=== PATIENT | male | born 1935 | race Caucasian/White ===

== ENCOUNTER 2017-02-27 13:49 | Emergency (ER) | payer OTHER, BC ==
[2017-02-27] MEDS ORDERED: NS 1,000 ML IV ONE (13:54)
--- NOTE | 2017-02-27 13:58 | EDPHY ---
H & P Time Seen by Provider: 02/27/17 13:50 HPI/ROS: CHIEF COMPLAINT: Presyncope, tachycardia HISTORY OF PRESENT ILLNESS: The patient presents the ED after an episode of presyncope. The patient has a history of paroxysmal atrial fibrillation. He is not anticoagulated. Past medical history is significant for recent dental work on . The patient was going on a walk with his caregiver today when he developed presyncope and lightheadedness. The patient did not fall or sustain trauma. The patient was able to be assisted back to a couch where his heart rate reportedly was found to be in the 140s to 150s. This seemed to resolve fairly spontaneously. The patient continued to have tachycardia in the 90-100 range which prompted caregiver to call paramedics. The patient was placed on a monitor with EMS and was noted to have intermittent bouts of what appeared to be rapid atrial fibrillation. Upon arrival to the emergency department the patient is asymptomatic. He denies chest pain or shortness of breath. The patient has had decreased oral intake since his surgery this week. The patient has not had any fever, cough or congestion. He denies abdominal pain, vomiting or diarrhea. He denies headache, numbness or weakness. REVIEW OF SYSTEMS: A comprehensive 10 point review of systems is otherwise negative aside from elements mentioned in the history of present illness. Source: Patient, Family, EMS - Medical/Surgical History PMH: Past medical history: Atrial fibrillation, dementia - Family History Significant Family History: No pertinent family hx - Social History Smoking Status: Never smoked - Physical Exam Exam: General Appearance: Elderly male, no acute distress Head: Atraumatic Eyes: Pupils equal, round, reactive ENT, Mouth: No hemotympanum, no oral trauma Neck: Nontender, trachea midline Respiratory: No chest wall tender, subcutaneous air, lungs clear bilaterally Cardiovascular: Regular rate and rhythm Abdomen: Abdomen is soft and nontender, pelvis stable Skin: No lacerations, No abrasion Back: No midline T/L/S pain Extremities: Nontender, full range of motion Neurological: Alert and oriented x2 (baseline), 5/5 strength noted all 4 extremities Constitutional: Initial Vital Signs Temperature (C) 36.9 C 02/27/17 13:56 Heart Rate 10 L 02/27/17 13:56 Respiratory Rate 16 02/27/17 13:56 Blood Pressure 119/82 H 02/27/17 13:56 O2 Sat (%) 98 02/27/17 13:56 O2 Delivery Mode Room Air Allergies/Adverse Reactions: Sulfa (Sulfonamide Antibiotics) Allergy (Verified 02/27/17 13:56) Home Medications: Medication Instructions Recorded Furosemide 02/27/17 Lisinopril 02/27/17 Metoprolol Succinate 02/27/17 Pravastatin Sodium 02/27/17 Medical Decision Making - Diagnostics EKG Interpretation: EKG: Complete interpretation has been separately recorded in the [employer] archive. Summary impression: Sinus rhythm, rate 88, inferior Q-waves noted, no prior EKG to compare to. ED Course/Re-evaluation: The patient arrives after an episode of presyncope. The patient has been having intermittent atrial fibrillation. While in the emergency department, it is clear that the patient is exhibiting symptoms of acute confusion. He has been taking Percocet following his recent dental procedure. The patient does have a history of dementia as well. While in the department, the patient was having visual hallucinations feeling that bugs were crawling on his bed. The patient did have an IV established. He received a L of normal saline. The patient the did have some urinary retention. A urinalysis demonstrates no evidence of infection. The patient presents to the ED with tachycardia consistent with intermittent atrial fibrillation now resolved. The patient has had some confusion and urinary retention likely secondary to using Percocet for recent dental work. The patient does have 24 hour home care. They will discontinue the use of Percocet. They are comfortable with the patient returning home. The patient will return to the ED for any inability to urinate, fever, vomiting, increasing confusion or other concerns. Otherwise the patient will follow up with primary care as scheduled. I re-evaluated the patient at 4:30 p.m.. He is feeling much better. Differential Diagnosis: Differential diagnosis considered includes urinary tract infection, dehydration , arrhythmia, metabolic abnormality, medication side effect - Data Points Laboratory Results: Laboratory Results 02/27/17 14:05 02/27/17 14:05 02/27/17 02/27/17 02/27/17 16:24 14:05 14:05 WBC 6.48 10^3/uL 10^3/uL (3.80-9.50) RBC 4.51 10^6/uL 10^6/uL (4.40-6.38) Hgb 13.8 g/dL g/dL (13.7-17.5) Hct 41.3 % % (40.0-51.0) MCV 91.6 fL fL (81.5-99.8) MCH 30.6 pg pg (27.9-34.1) MCHC 33.4 g/dL g/dL (32.4-36.7) RDW 13.6 % % (11.5-15.2) Plt Count 180 10^3/uL 10^3/uL (150-400) MPV 8.8 fL fL (8.7-11.7) Neut % (Auto) 71.1 % % (39.3-74.2) Lymph % (Auto) 17.9 % % (15.0-45.0) [place] % (Auto) 7.7 % % (4.5-13.0) Eos % (Auto) 2.2 % % (0.6-7.6) Baso % (Auto) 0.8 % % (0.3-1.7) Nucleat RBC Rel Count 0.0 % % (0.0-0.2) Absolute Neuts (auto) 4.61 10^3/uL 10^3/uL (1.70-6.50) Absolute Lymphs (auto) 1.16 10^3/uL 10^3/uL (1.00-3.00) Absolute Monos (auto) 0.50 10^3/uL 10^3/uL (0.30-0.80) Absolute Eos (auto) 0.14 10^3/uL 10^3/uL (0.03-0.40) Absolute Basos (auto) 0.05 10^3/uL 10^3/uL (0.02-0.10) Absolute Nucleated RBC 0.00 10^3/uL 10^3/uL (0-0.01) Immature Gran % 0.3 % % (0.0-1.1) Immature Gran # 0.02 10^3/uL 10^3/uL (0.00-0.10) Sodium 136 mEq/L mEq/L (134-144) Potassium 4.9 mEq/L mEq/L (3.5-5.2) Chloride 100 mEq/L mEq/L (97-110) Carbon Dioxide 25 mEq/l mEq/l (22-31) Anion Gap 11 mEq/L mEq/L (8-16) BUN 23 mg/dL mg/dL (7-23) Creatinine 1.3 mg/dL mg/dL (0.7-1.3) Estimated GFR 53 Glucose 108 mg/dL H mg/dL (70-100) Calcium 9.4 mg/dL mg/dL (8.5-10.4) Troponin I < 0.012 ng/mL ng/mL (0-0.034) Urine Color PALE YELLOW Urine Appearance CLEAR Urine pH 8.0 H (5.0-7.5) Ur Specific [place] 1.006 (1.002-1.030) Urine Protein NEGATIVE (NEGATIVE) Urine Ketones NEGATIVE (NEGATIVE) Urine Blood NEGATIVE (NEGATIVE) Urine Nitrate NEGATIVE (NEGATIVE) Urine Bilirubin NEGATIVE (NEGATIVE) Urine Urobilinogen NEGATIVE EU EU (0.2-1.0) Ur Leukocyte Esterase NEGATIVE (NEGATIVE) Urine RBC 1-3 /hpf /hpf (0-3) Urine WBC 1-3 /hpf /hpf (0-3) Ur Epithelial Cells TRACE /lpf /lpf (NONE-1+) Urine Glucose NEGATIVE (NEGATIVE) Medications Given: Discontinued Medications Sodium Chloride (Ns) 1,000 mls @ 0 mls/hr IV EDNOW ONE; Wide Open PRN Reason: Protocol Stop: 02/27/17 13:55 Last Admin: 02/27/17 14:26 Dose: 1,000 mls Departure - Departure Disposition: Home, Routine, Self-Care Clinical Impression: Atrial fibrillation, Medication side effect, Urinary retention Condition: Good Instructions: A-fib (Atrial Fibrillation) (ED), Dehydration (ED) Additional Instructions: 1. Please return to the emergency department fever, vomiting, inability to urinate, persistent tachycardia or other concerns. 2. I recommend discontinuing Percocet as this is likely causing confusion and difficulty with bowel movements and urination. 3. Follow-up with your primary care provider as scheduled. Referrals: KAYLEE SEGURA [Primary Care Provider] - As per Instructions
[2017-02-27 13:59] VITALS: TEMP 98.4
--- NOTE | 2017-02-27 14:05 | CPEKG ---
Heart Rate: 88 RR Interval: 682 P-R Interval: 188 QRSD Interval: 86 QT Interval: 368 QTC Interval: 446 P [place]: 8 QRS [place]: -10 T Wave [place]: 78 EKG Severity - ABNORMAL ECG - EKG Impression: SINUS RHYTHM EKG Impression: PROBABLE INFERIOR INFARCT, AGE INDETERMINATE Electronically Signed By: Víctor Khan 27-Feb-2017 14:06:58
[2017-02-27 14:14] LABS: % IMMATURE GRANULYOCYTES 0.3 % (0.0-1.1); ABSOLUTE IMMATURE GRANULOCYTES 0.02 10^3/uL (0.00-0.10); ADD DIFF? NO; ADD MORPH? NO; ADD SCAN? NO; ATYPICAL LYMPHOCYTE FLAG 0 (0-99); FRAGMENT RBC FLAG 0 (0-99); HEMATOCRIT 41.3 % (40.0-51.0); HEMOGLOBIN 13.8 g/dL (13.7-17.5); LEFT SHIFT FLG 0 (0-99); LIPEMIA HEMOLYSIS FLAG 80 (0-99); MEAN CELL HEMOGLOBIN 30.6 pg (27.9-34.1); MEAN CELL HEMOGLOBIN CONCENTR. 33.4 g/dL (32.4-36.7); MEAN CELL VOLUME 91.6 fL (81.5-99.8); MEAN PLATELET VOLUME 8.8 fL (8.7-11.7); PLATELET CLUMPS FLAG 0 (0-99); PLATELET COUNT 180 10^3/uL (150-400); RED BLOOD CELL COUNT 4.51 10^6/uL (4.40-6.38); RED CELL DISTRIBUTION WIDTH 13.6 % (11.5-15.2)
[2017-02-27 14:28] LABS: ANION GAP 11 mEq/L (8-16); CALCIUM 9.4 mg/dL (8.5-10.4); CARBON DIOXIDE 25 mEq/l (22-31); CHLORIDE 100 mEq/L (97-110); CREATININE 1.3 mg/dL (0.7-1.3); GLOMERULAR FILTRATION RATE 53; GLUCOSE 108 mg/dL (70-100); POTASSIUM 4.9 mEq/L (3.5-5.2); SODIUM 136 mEq/L (134-144)
[2017-02-27 14:40] LABS: TROPONIN I < 0.012 ng/mL (0-0.034)
[2017-02-27 16:29] LABS: COLOR PALE YELLOW; LEUKOCYTE ESTERASE,URINE NEGATIVE (NEGATIVE); NITRITE,URINE NEGATIVE (NEGATIVE)
[2017-02-27 17:05] VITALS: BP 149/89; PULSE 88; RESP 20; O2SAT 92
== END 2017-02-27 17:22 | disposition home or self-care (01) ==
LOC: EDUNIT#
DX: I48.91 Unspecified atrial fibrillation (principal); R33.9 Retention of urine, unspecified; T88.7XXA Unspecified adverse effect of drug or medicament, initial encounter; E86.9 Volume depletion, unspecified; T50.905A Adverse effect of unspecified drugs, medicaments and biological substances, initial encounter; Y82.8 Other medical devices associated with adverse incidents

== ENCOUNTER 2017-07-04 10:35 | Emergency (ER) | payer OTHER, BC ==
[2017-07-04 10:48] VITALS: RESP 18
--- NOTE | 2017-07-04 11:12 | EDPHY ---
H & P Stated Complaint: Son got low O2 sat reading at home;pt also has cough x 1 wk Time Seen by Provider: 07/04/17 11:00 - Personal History Current Tetanus Diphtheria and Acellular Pertussis (TDAP): Yes - Medical/Surgical History Hx Asthma: No Hx Chronic Respiratory Disease: No Hx Diabetes: Yes Hx Cardiac Disease: Yes Hx Renal Disease: No Hx Cirrhosis: No Hx Alcoholism: No Hx HIV/AIDS: No Hx Splenectomy or Spleen Trauma: No Other PMH: HTN, CABG, non-insulin/non-med dependent diabetes - Social History Smoking Status: Former smoker Constitutional: Initial Vital Signs Temperature (C) 36.5 C 07/04/17 10:35 Heart Rate 88 07/04/17 10:35 Respiratory Rate 18 07/04/17 10:35 Blood Pressure 125/91 H 07/04/17 10:35 O2 Sat (%) 93 07/04/17 10:35 O2 Delivery Mode Room Air Allergies/Adverse Reactions: Sulfa (Sulfonamide Antibiotics) Allergy (Unknown, Verified 07/04/17 10:45) Home Medications: Medication Instructions Recorded Furosemide 02/27/17 Lisinopril 02/27/17 Metoprolol Succinate 02/27/17 Pravastatin Sodium 02/27/17 AZITHROMYCIN [Z-PACK] 250 mg PO DAILY #1 packet 07/04/17 Medical Decision Making ED Course/Re-evaluation: CHIEF COMPLAINT: Hypoxia HISTORY OF PRESENT ILLNESS: The patient is an 82-year-old male presenting with hypoxia. The patient has had URI symptoms for 1 week with cough and congestion. His son thought his oxygen saturation was low at home. His oxygen is usually above 90% at home. His son got a reading of 65% at home and was concerned. The patient did not appear to be short of breath, pale, or near syncopal. The patient is not on supplemental oxygen. The patient's cough is productive. He is not currently on antibiotics. REVIEW OF SYSTEMS: A 10 point review of systems was performed and is negative with the exception of the elements mentioned in the history of present illness. PHYSICAL EXAM: HR, BP, O2 Sat, RR. Temp noted General Appearance: Alert, well hydrated, appropriate, and non-toxic appearing. Head: Atraumatic without scalp tenderness or obvious injury Eyes: Pupils equal, round, reactive to light and accommodation, EOMI, no trauma , no injection. Throat: There is no erythema or exudates, no lesions, normal tonsils, mucus membranes moist. Neck: Supple, 2+ carotid upstroke, nontender, no lymphadenopathy. Respiratory: Expiratory wheezing, rhonchi, no respiratory distress. Cardiovascular: Regular rate and rhythm, no murmurs, rubs, or gallops. Bilateral carotid, radial, dorsalis pedis, and posterior tibial pulses intact. Good capillary refill all extremities. Gastrointestinal: Abdomen is soft, nontender, non-distended, no masses, no rebound, no guarding, no peritoneal signs. Musculoskeletal: Normal active ROM of all extremities, atraumatic. Neurological: Alert, appropriate, and interactive. The patient has normal DTRs and non-focal cranial nerves, motor, sensory, and cerebellar exam. Skin: No rashes, good turgor, no nodules on palpation. Past medical history: Hypertension, Type II diabetes. Past surgical history: CABG Family history: Noncontributory. Social history: Son at bedside. DIFFERENTIAL DIAGNOSIS: MEDICAL DECISION MAKING: Patient is an 82 year old male presenting with a low oxygen reading at home. His son recorded his O2 saturation to be 65% at home. The patient is not on supplemental oxygen. His O2 saturation here is 93% on room air. On examination the patient has expiratory wheezing and rhonchi. No focal decrease, no respiratory distress, he is afebrile. Symptoms likely a cause of bronchitis with worsened wheezing. The patient received duo-neb breathing treatment and 10mg oral Decadron in the ED. He will be discharged home with Azithromycin. Departure - Departure Disposition: Home, Routine, Self-Care Clinical Impression: Bronchitis Condition: Good Instructions: Acute Bronchitis (ED) Additional Instructions: Take the full course of antibiotics as directed. Follow up with your primary care physician as needed. Return to the Emergency Department with new or worsening symptoms. Referrals: KAYLEE SEGURA [Primary Care Provider] - As per Instructions Prescriptions: AZITHROMYCIN [Z-PACK] 250 mg PO DAILY #1 packet Report Scribed for: Alexandro Rausch Report Scribed by: Kriss Shields Date of Report: 07/04/17 Time of Report: 11:29
[2017-07-04] MEDS ORDERED: IPRATROPIUM/ALBUTEROL 3 ML DEYVIAL IH ONE (11:36)
[2017-07-04] MEDS ORDERED: AZITHROMYCIN 250 MG TAB PO ONE (11:36)
[2017-07-04] MEDS ORDERED: DEXAMETHASONE 10 MG/ML VIAL PO ONE (11:37)
[2017-07-04 11:48] VITALS: BP 122/67; PULSE 81; TEMP 98.2; O2SAT 95
== END 2017-07-04 11:56 | disposition home or self-care (01) ==
DX: J20.9 Acute bronchitis, unspecified (principal); E11.9 Type 2 diabetes mellitus without complications; I10 Essential (primary) hypertension; Z87.891 Personal history of nicotine dependence; Z95.1 Presence of aortocoronary bypass graft
CPT/HCPCS: 99283; J1100

== ENCOUNTER 2017-12-29 17:38 | Inpatient (IN) | payer OTHER, BC ==
--- NOTE | 2017-12-29 17:53 | EDPHY ---
H & P Time Seen by Provider: 12/29/17 17:41 HPI/ROS: CHIEF COMPLAINT: No one to care for the patient HISTORY OF PRESENT ILLNESS: History from EMS is that the son was in a standoff with police and was arrested, he takes care of his father with dementia, now no one is available to take care of the patient. He is brought here for admission. REVIEW OF SYSTEMS: Patient denies any medical complaints. Specifically denies any injury, pain, recent illness. Further history and review of systems is limited by the patient 's dementia. PAST MEDICAL HISTORY: Includes hypertension, bypass, left wrist surgery, dementia Social history: Was living with his son General Appearance: Alert and conversant, cooperative. Eyes: No scleral icterus. ENT, Mouth: Normal mucous membranes. Respiratory: Normal respiratory effort, breath sounds equal, lungs are clear to auscultation. Cardiovascular: Regular rate and rhythm. Gastrointestinal: Abdomen is soft and non tender. Neurological: Alert, face symmetric, normal motor and sensory in extremities. He thinks it is May and does not know the year. When asked who the president is he says it is"the selin with the white hair, I can't remember his name." Skin: Warm and dry, no rashes. Musculoskeletal: No peripheral edema. Psychiatric: Not agitated. Emergency Department course/MDM: Patient brought into the ER with a history of dementia and inability to care for himself at home as his caregiver is now in custody. Screening labs and admission. 175: discussed with [facility], admit hospitalist, case management for disposition. Smoking Status: Former smoker Constitutional: Initial Vital Signs Temperature (C) 36.7 C 12/29/17 17:40 Heart Rate 84 12/29/17 17:40 Respiratory Rate 16 12/29/17 17:40 Blood Pressure 103/68 12/29/17 17:40 O2 Sat (%) 92 12/29/17 17:40 O2 Delivery Mode Room Air Allergies/Adverse Reactions: Sulfa (Sulfonamide Antibiotics) Allergy (Unknown, Verified 07/04/17 10:45) Home Medications: Medication Instructions Recorded Allopurinol [Allopurinol 300 MG 300 mg PO HS 12/29/17 (RX)] Furosemide [Lasix 40 MG (*)] 40 mg PO HS 12/29/17 Lisinopril [Zestril 20 mg (*)] 20 mg PO HS 12/29/17 Metoprolol Succinate Xr [Toprol Xl 50 mg PO HS 12/29/17 50 mg (*)] Potassium Chloride [Klor-Con 10] 10 meq PO HS 12/29/17 Pravastatin Sodium 20 mg PO HS 12/29/17 risperiDONE [Risperdal 1mg (*)] 1 mg PO HS 12/29/17 Medical Decision Making - Data Points Laboratory Results: Laboratory Results 12/29/17 17:50 12/29/17 17:50 12/29/17 12/29/17 17:50 17:50 WBC 9.02 10^3/uL 10^3/uL (3.80-9.50) RBC 4.33 10^6/uL L 10^6/uL (4.40-6.38) Hgb 13.2 g/dL L g/dL (13.7-17.5) Hct 40.3 % % (40.0-51.0) MCV 93.1 fL fL (81.5-99.8) MCH 30.5 pg pg (27.9-34.1) MCHC 32.8 g/dL g/dL (32.4-36.7) RDW 13.8 % % (11.5-15.2) Plt Count 244 10^3/uL 10^3/uL (150-400) MPV 9.1 fL fL (8.7-11.7) Neut % (Auto) 77.1 % H % (39.3-74.2) Lymph % (Auto) 14.1 % L % (15.0-45.0) [place] % (Auto) 7.9 % % (4.5-13.0) Eos % (Auto) 0.3 % L % (0.6-7.6) Baso % (Auto) 0.4 % % (0.3-1.7) Nucleat RBC Rel Count 0.0 % % (0.0-0.2) Absolute Neuts (auto) 6.95 10^3/uL H 10^3/uL (1.70-6.50) Absolute Lymphs (auto) 1.27 10^3/uL 10^3/uL (1.00-3.00) Absolute Monos (auto) 0.71 10^3/uL 10^3/uL (0.30-0.80) Absolute Eos (auto) 0.03 10^3/uL 10^3/uL (0.03-0.40) Absolute Basos (auto) 0.04 10^3/uL 10^3/uL (0.02-0.10) Absolute Nucleated RBC 0.00 10^3/uL 10^3/uL (0-0.01) Immature Gran % 0.2 % % (0.0-1.1) Immature Gran # 0.02 10^3/uL 10^3/uL (0.00-0.10) Sodium 141 mEq/L mEq/L (135-145) Potassium 4.7 mEq/L mEq/L (3.3-5.0) Chloride 102 mEq/L mEq/L (97-110) Carbon Dioxide 25 mEq/l mEq/l (22-31) Anion Gap 14 mEq/L mEq/L (8-16) BUN 26 mg/dL H mg/dL (7-23) Creatinine 1.1 mg/dL mg/dL (0.7-1.3) Estimated GFR > 60 Glucose 113 mg/dL H mg/dL (70-100) Calcium 9.1 mg/dL mg/dL (8.5-10.4) Departure - Departure Disposition: [facility] Clinical Impression: Dementia Qualifiers: Dementia type: unspecified type Dementia behavioral disturbance: without behavioral disturbance Qualified Code(s): F03.90 - Unspecified dementia without behavioral disturbance Condition: Good
[2017-12-29] MEDS ORDERED: ONDANSETRON 4 MG/2 ML VIAL IVP PRN (18:39)
[2017-12-29] MEDS ORDERED: ACETAMINOPHEN 325 MG TAB PO PRN (18:39)
[2017-12-29] MEDS ORDERED: ONDANSETRON DISINTEGRATING 4 MG TAB PO PRN (18:39)
[2017-12-29 18:53] LABS: PLATELET COUNT 244 10^3/uL (150-400)
--- NOTE | 2017-12-29 19:08 | GHP ---
[f rep st] HISTORY AND PHYSICAL DATE OF ADMISSION: 12/29/2017 CHIEF COMPLAINT: Cannot stay at home. HISTORY OF PRESENT ILLNESS: This is an 82-year-old man with dementia who lives with a son. Apparent ly, his son was in an altercation with police and was arrested today. He was thus brought in for adm ission, as he has no family to care for him. He is unsure exactly why he is here. He does not reall y remember who he lives with. Case Management in the ED was unable to find him suitable disposition. PAST MEDICAL/SURGICAL HISTORY: 1. Hypertension. 2. Coronary artery disease, status post bypass. 3. Left wrist surgery. 4. Dementia. 5. Gout. MEDICATIONS: Please see medication reconciliation. ALLERGIES: Sulfa. FAMILY HISTORY: Unobtainable, given patient's current condition. SOCIAL HISTORY: Previously lived with his son. REVIEW OF SYSTEMS: A 10-point review of systems is conducted and is negative except per HPI. PHYSICAL EXAM: VITAL SIGNS: Blood pressure 103/68, heart rate 84, respiration rate 16, sat 92% on r oom air. Temperature is 36.7. GENERAL: Mr. Walker is a pleasant man, resting comfortably, in no acu te distress. HEENT: Shows him to be normocephalic, atraumatic. CARDIOVASCULAR: Shows a regular ra te and rhythm. No murmurs, rubs, or gallops. PULMONARY: Lungs clear to auscultation bilaterally. ABDOMEN: Soft, nontender, nondistended. SKIN: Shows no rash. : No Dawn. NEUROLOGIC: Alert a nd oriented times about 1. He has otherwise a nonfocal neurologic exam. PSYCHIATRIC: Normal mood a nd affect. DATA: I discussed with Dr. Hadadd. Will admit to the hospital. IMPRESSION AND PLAN: 1. Dementia: Was previously living with his son. This is no longer an option, as above. He has no safe disposition, thus will need to be admitted to the hospital for further management. We will nee d to involve Case Management. I note that he is on risperidone h.s. I will continue this. He is at high risk for hospital delirium, unfortunately. 2. Code status: I reviewed his medical orders for life-sustaining treatment form, which is do not r esuscitate. I will place this order, as I feel that this is appropriate, given his situation. 3. Chronic medical problems, including diabetes, hypertension, coronary artery disease, and gout: Gilma villalobos will continue his home medications for this. These problems appear quiescent at this point. 4. Venous thromboembolism risk: He has no acute medical issues. Thus, I think that he is low risk for deep venous thrombosis. Would not start pharmacologic prophylaxis. /[id number]/MODL
[2017-12-29] MEDS: POTASSIUM CL 10 MEQ TAB PO SCH (21:19)
[2017-12-29] MEDS: risperiDONE 1 MG TAB PO SCH (21:19)
[2017-12-29] MEDS: ALLOPURINOL 300 MG TAB PO SCH (21:19)
[2017-12-29] MEDS: LISINOPRIL 20 MG TAB PO SCH (21:19)
[2017-12-29] MEDS: FUROSEMIDE 40 MG TAB PO SCH (21:19)
[2017-12-29] MEDS: METOPROLOL SUCCINATE XR 50 MG TAB PO SCH (21:19)
[2017-12-29] MEDS: PRAVASTATIN SODIUM 20 MG TAB PO SCH (21:19)
--- NOTE | 2017-12-30 09:12 | HOSPPROG ---
Hospitalist Progress Note Assessment/Plan: Patient is an 82-year-old man with dementia who lives w his son. His son was in an altercation with the police and was subsequently arrested. The patient was brought for admission because he has no family to care for him. Today is my 1st encounter with the patient. Chart reviewed. * dementia -calm and cooperative * difficult social situation -his son who he lives with is at the Behavioral Health unit, he is the patient' s MPOA -see CM notes -have ordered an Ethics consult to help with the process of getting the patient a proxy *DM *CAD -stable *gout -no complaints *Plan: to get an Ethics consult to help get a proxy, please see CM notes. Subjective: Chance has no complaints, feeling well. Objective: Vital Signs Temp Pulse Resp BP Pulse Ox 36.6 C 61 18 137/93 H 95 12/30/17 08:00 12/30/17 08:00 12/30/17 08:00 12/30/17 08:00 12/30/17 08:00 - Physical Exam Constitutional: no apparent distress, appears nourished, not in pain Eyes: PERRL Ears, Nose, Mouth, Throat: hearing normal Cardiovascular: regular rate and rhythym Respiratory: no respiratory distress Gastrointestinal: normoactive bowel sounds Skin: warm Neurologic: other (alert and oriented to himself and knows he is in the hospital ) Psychiatric: interacting appropriately, not anxious ICD10 Worksheet Patient Problems: Problems Problem Status Onset Dementia Acute
--- NOTE | 2017-12-30 11:08 | ASMTCMCOM ---
CM Note CM Note Notes: I spoke with patient's (who goes by "Cedric") [id number] Luciana to gather background on this difficult psychosocial case. Per Luciana, patient's son Rell (LISSETH) was taken into police custody and subsequently admitted to [facility] on 12/26. He was threatening suicide and/or homicide. Rell has also threatened Luciana with a "very messy divorce." They've been , and patient has been living with Rell. In anticipation of this messy divorce, Luciana and patient called [employer]PS together yesterday 12/29 for support/advice. Per Luciana, someone from [employer] came to see patient (she wasnt' there) and "took him away." This was likely when he was brought to the ED. Patient's APS pre sales technical engineer is Shad Hamm [phone]. Luciana says that she has a restraining order against Rell. She was thus advised "by family and divorce legal assistant" to remove herself as patient's alternate MDPDANAY. She called his PCP's, Dr Kevin Iglesias, office and did this. She says that she will be working with [employer] to provide additional family contact info (patient has a granddaughter named Ariana Walker) for interested parties. She told me she was advised not to give us any family members numbers yet. We have ordered an Ethics consult to help follow for this. I will contact [employer] so that we can work in tandem. PT/OT will be ordered to evaluate patient for residential needs. He has dementia. Case Management will follow. Date Signed: 12/30/2017 11:08 AM Electronically Signed By:Noreen Vásquez RN
--- NOTE | 2017-12-30 14:08 | PDMN ---
Medical Necessity Medical necessity: est los>2mn for dementia with sudden loss of caregiver, unsafe to be alone, dose not recall that he lives with son; admit for safe disposition; comorbid htn, CAD/CABG, and gout; per order and H&P 12/29/17
[2017-12-30] MEDS ORDERED: PNEUMOC 13-VAL CONJ-DIP CRM/PF 0.5 ML SYR IM ONE (15:00)
--- NOTE | 2017-12-30 16:00 | ASMTCMCOM ---
CM Note CM Note Notes: I was not able to get in touch w [employer]PS merchandise buyer Shad Hamm today. I did, however, spend a long time with patient's DIL Luciana ([phone]) and continue to gather more background. Luciana gave me the phone numbers of patient's other son Chris Walker in [place], [place] ([phone]) and his granddaughter (daughter of pt's son Rell, who is currently at [facility]) Gagan Walker ([phone]). I wasn't able to reach Gagan but I did speak with Chris. Apparently, Chris is the one who called the police on Rell on Wednesday. They were speaking on the phone and Rell threatened suicide. Chris also called APS to report Luciana because Rell said that Luciana was stealing money from patient. Luciana says that the money was set aside by Rell as earmarked for rent on their house. We'll let APS figure that out - the point is: APS was called on two separate occasions on this patient; one, by his son Chris in [place], [place] based on allegations that his son Rell, in [place], made against his Luciana. The other APS call was made by Luciana who was seeking resources for patient since his primary caregiver - son Rell - was hospitalized for his unstable and violent behavior. Luciana brought some things to the hospital today for patient - books, photos, clothes - and she hopes that she can help facilitate his transfer to a SNF if that becomes dispo plan. Luciana says that patient also has family in [place], [place], and a distant cousin works at a SNF there ([facility]). Chris (the son in [place]) also mentioned that he could help if needed, perhaps facilitating patient's transfer to a SNF in [place]. We will attend behavioral health rounds tomorrow to learn more about Rell (pt's MDPOA) plan. He may not be an appropriate decision maker for his father at this point. Ethics will also weigh in. The patient is very sweet and was completely lucid and involved in our conversation today; he's not sure what he wants to do at this point, but he understands he won't be able to move back into the living situation (with Rell and Luciana) that he was in before. Date Signed: 12/30/2017 04:00 PM Electronically Signed By:Noreen Vásquez RN
[2017-12-30] MEDS: LISINOPRIL 20 MG TAB PO SCH (20:16)
[2017-12-30] MEDS: FUROSEMIDE 40 MG TAB PO SCH (20:16)
[2017-12-30] MEDS: POTASSIUM CL 10 MEQ TAB PO SCH (20:16)
[2017-12-30] MEDS: ALLOPURINOL 300 MG TAB PO SCH (20:16)
[2017-12-30] MEDS: METOPROLOL SUCCINATE XR 50 MG TAB PO SCH (20:16)
[2017-12-30] MEDS: PRAVASTATIN SODIUM 20 MG TAB PO SCH (20:17)
[2017-12-30] MEDS: risperiDONE 1 MG TAB PO SCH (20:17)
--- NOTE | 2017-12-31 11:16 | HOSPPROG ---
Hospitalist Progress Note Assessment/Plan: Patient is an 82-year-old man with dementia who lives w his son. His son was in an altercation with the police and was subsequently arrested. The patient was brought for admission because he has no family to care for him. * dementia -calm and cooperative -will ask ST to do a cognitive evaluation * difficult social situation -his son who he lives with is at the Behavioral Health unit, he is the patient' s MPOA -see CM notes *HTN -stable, home medications resumed *CAD -stable *gout -no complaints *Plan: Patient is not decisional. He knows he is in the hospital. But he would be unable to take care of himself as far as making meals,etc. He lacks insight and knowledge of why he is here. He spends the day looking at his ' s pictures and talking about the past. He is unable to tell me his sons names during my interview. He is not clear where his other son is. He is not clear that he had been living with his son. I spoke with his son Chris who lives in [facility]. He is willing to be the patient's proxy. I explained to him that a proxy is someone who is representing his father's best interest. In addition, will ask ST to do a cognitive evaluation. Subjective: Chance is feeling well, has no complaints. Objective: Vital Signs Temp Pulse Resp BP Pulse Ox 36.5 C 62 16 154/91 H 95 12/31/17 07:50 12/31/17 07:50 12/31/17 07:50 12/31/17 07:50 12/31/17 07:50 12/30/17 12/31/17 01/01/18 05:59 05:59 05:59 Intake Total 200 Balance 200 - Physical Exam Constitutional: no apparent distress, appears nourished, not in pain Eyes: PERRL Ears, Nose, Mouth, Throat: hearing normal Cardiovascular: regular rate and rhythym Respiratory: no respiratory distress Gastrointestinal: normoactive bowel sounds Skin: warm Neurologic: other (alert and oriented to himself and place) Psychiatric: interacting appropriately, poor insight, poor judgement, poor memory ICD10 Worksheet Patient Problems: Problems Problem Status Onset Dementia Acute
--- NOTE | 2017-12-31 12:09 | ASMTCMCOM ---
CM Note CM Note Notes: Conference call with patient, his son Chris (in [place], [place]), Shad pelaez [facility], and Luciana Walker, patient's daughter in law: We discussed discharge plan for patient. Chris has agreed to be proxy (see hospitalist note). He suggested [facility] in [place] (patient has family and friends there) and/or [facility]. SNF is more appropriate at this time, and patient agreed to plan. We will proceed. During the call, patient's son Chris and DIL Luciana began to delve into other issues (as mentioned in my note from yesterday) regarding allegations of Luciana taking money from patient, but I advised them to deal with this outside the hospital setting, with Shad from [facility]. I was able to redirect the conversation back to patient's discharge. Of note: Luciana does have full visitaiton and contact rights with patient. She is a great source of comfort to him, and she should be notified with discharge plans. Referral sent to [facility]. They will evaluate case. If he is accepted, we will need to figure out transportation. I mentioned this on the phone call with Chris and told him that I would look into cost of ground transportation. They might also choose to look into airfare. Patient's other son and LISSETH Zacarias is still hospitalized at [facility] and is not appropriate to make decisions for patient, hence the proxy appointment of patient's son Chris. Case Management will follow. Date Signed: 12/31/2017 12:08 PM Electronically Signed By:Noreen Vásquez RN
--- NOTE | 2017-12-31 14:28 | ASMTCMCOM ---
CM Note CM Note Notes: Spoke with Jenaro at [facility]. I gave her more background information on patient. She anticipates acceptance, but she needs her physicians to review, which will not happen until Wednesday. I explained that patient is ready for d/c now, but there seems to be no flexibility around this. I also asked her to help us with transportation ideas. Sebastian, the ED of this SNF mentioned coming down to [place] patient. We need to revisit this offer on Wednesday. I called two ambulance companies, and neither will transport someone that far unless they have need for a stretcher. I called pt's son Chris and explained the above. I asked him to please assist with the transportation. He said he would "look into it." He again told me that he's not going to do anything without becoming patient's financial POA. Per our ethics dept, I told Chris that he needs to contact a typesetting supervisor for that. Chris said that he and his have booked a non-refundable trip to [place] January 07 and he will be going. I advised him to address his father's care before he leaves for the trip. I also called patient's DIL Luciana and shared with her that we are waiting to hear from the SNF in [place] on Wednesday and that she may visit patient over the wknd. She said that she may or may not be able to visit since she is involved in the restraining order, family issues, etc w her and his family. Date Signed: 12/31/2017 02:28 PM Electronically Signed By:Noreen Vásquez RN
[2017-12-31] MEDS: FUROSEMIDE 40 MG TAB PO SCH (20:11)
[2017-12-31] MEDS: LISINOPRIL 20 MG TAB PO SCH (20:11)
[2017-12-31] MEDS: METOPROLOL SUCCINATE XR 50 MG TAB PO SCH (20:11)
[2017-12-31] MEDS: risperiDONE 1 MG TAB PO SCH (20:11)
[2017-12-31] MEDS: ALLOPURINOL 300 MG TAB PO SCH (20:11)
[2017-12-31] MEDS: POTASSIUM CL 10 MEQ TAB PO SCH (20:11)
[2017-12-31] MEDS: PRAVASTATIN SODIUM 20 MG TAB PO SCH (20:12)
--- NOTE | 2018-01-01 11:26 | HOSPPROG ---
Hospitalist Progress Note Assessment/Plan: Patient is an 82-year-old man with dementia whowas living with his w his son. His son was in an altercation with the police and was subsequently arrested. The patient was brought for admission because he has no family to care for him. Pt new to me. Chart reviewed. Spoke with CM. * dementia -calm and cooperative -noted to have severe dementia on cog eval * difficult social situation -his son who he lives with is at the Behavioral Health unit, he is the patient' s MPOA -see CM notes *HTN -BP eelvated -increase Lisinopril *CAD -no angina -add ASA *gout -no complaints *Plan: Patient has been likely accepted in a rehab center in [place]. Possible transfer on Wednesday if they accept. However, not confirmed. Pt's family aware that they would need to arrange transport. Subjective: No pain. Feels frustrated. smiling. Objective: Vital Signs Temp Pulse Resp BP Pulse Ox 97.9 F 63 16 164/90 H 95 01/01/18 07:15 01/01/18 07:15 01/01/18 07:15 01/01/18 07:15 01/01/18 07:15 12/31/17 01/01/18 01/02/18 05:59 05:59 05:59 Intake Total 200 790 Balance 200 790 - Physical Exam Constitutional: no apparent distress, appears nourished Eyes: PERRL, anicteric sclera Ears, Nose, Mouth, Throat: moist mucous membranes, hearing normal Cardiovascular: regular rate and rhythym, no murmur, rub, or gallop Respiratory: no respiratory distress Gastrointestinal: normoactive bowel sounds, soft, non-tender abdomen Skin: warm, normal color ICD10 Worksheet Patient Problems: Problems Problem Status Onset Dementia Acute
[2018-01-01] MEDS: FUROSEMIDE 40 MG TAB PO SCH (21:44)
[2018-01-01] MEDS: PRAVASTATIN SODIUM 20 MG TAB PO SCH (21:44)
[2018-01-01] MEDS: POTASSIUM CL 10 MEQ TAB PO SCH (21:44)
[2018-01-01] MEDS: METOPROLOL SUCCINATE XR 50 MG TAB PO SCH (21:45)
[2018-01-01] MEDS: risperiDONE 1 MG TAB PO SCH (21:45)
[2018-01-01] MEDS: LISINOPRIL 20 MG TAB PO SCH (21:45)
[2018-01-01] MEDS: ALLOPURINOL 300 MG TAB PO SCH (21:45)
[2018-01-02] MEDS: ASPIRIN EC 81 MG TAB PO SCH (08:47)
--- NOTE | 2018-01-02 09:31 | HOSPPROG ---
Hospitalist Progress Note Assessment/Plan: Patient is an 82-year-old man with dementia who was living with his w his son. His son was in an altercation with the police and was subsequently arrested. The patient was brought for admission because he has no family to care for him. * dementia -calm and cooperative -noted to have severe dementia on cog eval * difficult social situation -his son who he lives with is at the Behavioral Health unit, he is the patient' s MPOA -see CM notes *HTN -BP elevated -increased Lisinopril and BP appears improved *CAD/previous CABG by physical exam -no angina -added ASA yesterday -Continue BB and statin (? benefit of latter) *gout -no complaints *Plan: Patient has been likely accepted in a rehab center in [place]. Possible transfer on Wednesday if they accept. However, not confirmed. Pt's family aware that they would need to arrange transport. Subjective: No complaints. Tells me his 5 years ago and they were in love. Objective: Vital Signs Temp Pulse Resp BP Pulse Ox 98.4 F 66 14 112/67 95 01/02/18 07:15 01/02/18 07:15 01/02/18 07:15 01/02/18 07:15 01/02/18 07:15 01/01/18 01/02/18 01/03/18 05:59 05:59 05:59 Intake Total 790 850 Balance 790 850 - Physical Exam Constitutional: no apparent distress, appears nourished Eyes: PERRL, anicteric sclera Ears, Nose, Mouth, Throat: moist mucous membranes, hearing normal Cardiovascular: regular rate and rhythym, no murmur, rub, or gallop Respiratory: no respiratory distress, no rales or rhonchi Gastrointestinal: normoactive bowel sounds, soft, non-tender abdomen Skin: warm, normal color Psychiatric: interacting appropriately, not anxious ICD10 Worksheet Patient Problems: Problems Problem Status Onset Dementia Acute
--- NOTE | 2018-01-02 12:31 | ASMTCMCOM ---
CM Note CM Note Notes: CM call to son Chris in [place] [phone] to follow and see if there are updates re: transport to [place]. Chris stated he told Noreen nothing would be done until Wednesday. CM to follow. Current D/C Plan: Pending acceptance at facility in [place] and transport plan. Date Signed: 01/02/2018 12:31 PM Electronically Signed By:La Rios
[2018-01-02] MEDS: METOPROLOL SUCCINATE XR 50 MG TAB PO SCH (21:47)
[2018-01-02] MEDS: PRAVASTATIN SODIUM 20 MG TAB PO SCH (21:47)
[2018-01-02] MEDS: FUROSEMIDE 40 MG TAB PO SCH (21:47)
[2018-01-02] MEDS: LISINOPRIL 20 MG TAB PO SCH (21:47)
[2018-01-02] MEDS: risperiDONE 1 MG TAB PO SCH (21:47)
[2018-01-02] MEDS: POTASSIUM CL 10 MEQ TAB PO SCH (21:47)
[2018-01-02] MEDS: ALLOPURINOL 300 MG TAB PO SCH (21:48)
[2018-01-03] MEDS: ASPIRIN EC 81 MG TAB PO SCH (07:46)
--- NOTE | 2018-01-03 08:18 | HOSPPROG ---
Hospitalist Progress Note Assessment/Plan: Patient is an 82-year-old man with dementia who was living with his w his son. His son was in an altercation with the police and was subsequently arrested. The patient was brought for admission because he has no family to care for him. * dementia -calm and cooperative -noted to have severe dementia on cog eval * difficult social situation -his son who he lives with is at the Behavioral Health unit, he is the patient' s MPOA -see CM notes *HTN -BP elevated -increased Lisinopril *CAD/previous CABG by physical exam -no angina -added ASA yesterday -Continue BB and statin (? benefit of latter) *gout -no complaints *Plan: CM actively working on placement, looking at places in [place]. Subjective: Chance has no complaints, breakfast was good but too much food. Objective: Vital Signs Temp Pulse Resp BP Pulse Ox 36.9 C 61 14 146/85 H 94 01/03/18 07:26 01/03/18 07:26 01/03/18 07:26 01/03/18 07:26 01/03/18 07:26 01/02/18 01/03/18 01/04/18 05:59 05:59 05:59 Intake Total 850 950 Balance 850 950 - Physical Exam Constitutional: no apparent distress, appears nourished, not in pain Eyes: PERRL Ears, Nose, Mouth, Throat: hearing normal Respiratory: no respiratory distress Gastrointestinal: normoactive bowel sounds Skin: warm Musculoskeletal: generalized weakness Psychiatric: interacting appropriately, not anxious ICD10 Worksheet Patient Problems: Problems Problem Status Onset Dementia Acute
--- NOTE | 2018-01-03 16:56 | ASMTCMCOM ---
CM Note CM Note Notes: Spoke with both patient's sons, Chris and Rell. Both of them support patient going to [facility] in [place], where patient has extended family. In fact the assistant finance director is the patient's in law of a cousin and she has known him her entire life. Jitendra [phone], fax # [phone]. Jitendra states they can take the patient tomorrow. An extensive search for transportation was done and [employer] [facility] has accepted the job. [facility] will bill us and the family will then need to reimburse the hospital. Patient will be transported from our door to [facility]'s door, leaving tomorrow 01-04-2018 at 9:00 AM. The transfer of Care and d/c summaries need to be done by 8:30 AM so I can fax them to the facility before the patient leaves. Nurse to nurse report call number [phone], ask for station 1 nurse. Patient is going to [address] [place] [address]. CM will follow. Date Signed: 01/03/2018 04:55 PM Electronically Signed By:Yanci Zhao LCSW
[2018-01-03] MEDS: ALLOPURINOL 300 MG TAB PO SCH (21:03)
[2018-01-03] MEDS: PRAVASTATIN SODIUM 20 MG TAB PO SCH (21:03)
[2018-01-03] MEDS: LISINOPRIL 20 MG TAB PO SCH (21:03)
[2018-01-03] MEDS: FUROSEMIDE 40 MG TAB PO SCH (21:03)
[2018-01-03] MEDS: POTASSIUM CL 10 MEQ TAB PO SCH (21:03)
[2018-01-03] MEDS: METOPROLOL SUCCINATE XR 50 MG TAB PO SCH (21:04)
[2018-01-03] MEDS: risperiDONE 1 MG TAB PO SCH (21:04)
--- NOTE | 2018-01-04 07:54 | HOSPPROG ---
Hospitalist Progress Note Assessment/Plan: Patient is an 82-year-old man with dementia who was living with his w his son. His son was in an altercation with the police and was subsequently arrested. The patient was brought for admission because he has no family to care for him. * dementia -calm and cooperative -noted to have severe dementia on cog eval * difficult social situation -his son who he lives with is at the Behavioral Health unit, he is the patient' s MPOA -see CM notes *HTN -BP elevated -increased Lisinopril *CAD/previous CABG by physical exam -no angina -added ASA -Continue BB and statin *gout -no complaints *Plan: dc today Subjective: Chance is feeling fine, no complaints. Objective: Vital Signs Temp Pulse Resp BP Pulse Ox 36.5 C 64 16 157/82 H 92 01/03/18 23:14 01/03/18 23:14 01/03/18 23:14 01/03/18 23:14 01/03/18 23:14 01/03/18 01/04/18 01/05/18 05:59 05:59 05:59 Intake Total 950 700 Balance 950 700 - Physical Exam Constitutional: no apparent distress, appears nourished, not in pain Eyes: PERRL Ears, Nose, Mouth, Throat: hearing normal Respiratory: no respiratory distress Skin: warm Musculoskeletal: full muscle strength Psychiatric: interacting appropriately, not anxious ICD10 Worksheet Patient Problems: Problems Problem Status Onset Dementia Acute
--- NOTE | 2018-01-04 07:57 | PDIAF ---
- Diagnosis Diagnosis: dementia, CAD, HTN Code Status: Do Not Resuscitate - Medication Management Discharge Medications: Medications to Continue on Transfer Allopurinol [Allopurinol 300 MG (RX)] 300 mg PO HS 12/29/17 [Last Taken 12/28/17 ] Furosemide [Lasix 40 MG (*)] 40 mg PO HS 12/29/17 [Last Taken 12/28/17] Metoprolol Succinate Xr [Toprol Xl 50 mg (*)] 50 mg PO HS 12/29/17 [Last Taken 12/28/17] Potassium Chloride [Klor-Con 10] 10 meq PO HS 12/29/17 [Last Taken 12/28/17] Pravastatin Sodium 20 mg PO HS 12/29/17 [Last Taken 12/28/17] risperiDONE [Risperdal 1mg (*)] 1 mg PO HS 12/29/17 [Last Taken 12/28/17] Acetaminophen [Tylenol 325mg (*)] 650 mg PO Q4HRS PRN tab 01/04/18 [Last Taken Unknown] Aspirin EC [Aspirin EC 81 mg (*)] 81 mg PO DAILY tab 01/04/18 [Last Taken Unknown] Lisinopril [Zestril 20 mg (*)] 40 mg PO HS tab 01/04/18 [Last Taken Unknown] Discharge Medications: Refer to the Discharge Home Medication list for PRN reason. - Orders Services needed: Physical Therapy, Occupational Therapy Diet Recommendation: no restrictions on diet Diet Texture: Regular Texture Diet Additional Instructions: dose of lisinopril has been increased from 20 mg to 40 mg - Follow Up Care Current Providers and Referrals: Patient,NotPresent [Primary Care Provider] - As per Instructions
[2018-01-04] MEDS: ASPIRIN EC 81 MG TAB PO SCH (08:04)
[2018-01-04 08:45] VITALS: BP 129/68
--- NOTE | 2018-01-04 11:28 | GDS ---
[f rep st] DISCHARGE SUMMARY DISCHARGE DIAGNOSES: 1. Dementia. 2. Difficult social situation. 3. Hypertension. 4. Coronary artery disease. 5. Gout. Briefly, the patient is an 82-year-old gentleman with dementia who lives with his son. His son was in an altercation with the police and was arrested. He was brought in for admission because he had no family to care for him. The plan is for him to be discharged to the [facility]. His other son lives in that area. HOSPITAL COURSE: 1. Dementia. He has been calm and cooperative. Upon his cognitive evaluation , it was noted he was noted to have severe dementia. 2. Difficult social situation. Appreciate case management involvement. 3. Hypertension. His lisinopril dose was increased with improvement. 4. Coronary artery disease. Have added aspirin. He is on beta laura and statin therapy. 5. Gout. No complaints. DISCHARGE CONDITION: Stable. PHYSICAL EXAMINATION: VITAL SIGNS: Blood pressure 129/68, heart rate is 73, respiratory rate is 16, O2 sats on room air 95%. MEDICATIONS AT DISCHARGE: Please see the EMR. DISCHARGE INSTRUCTIONS: 1. To note that his lisinopril dose has been increased. 2. If he develops fever, chills, chest pain, or shortness of breath, return to the ER. /[id number]/MODL MTDD
--- NOTE | 2018-01-04 14:13 | ASMTLACE ---
LACE Length of stay for Answers: 4-6 days current admission Acuity / Level of Answers: Yes Care: Did the patient have an inpatient admission? Comorbidities - select Answers: Coronary Artery Disease all that apply Dementia Other Notes: HTN # of Emergency department Answers: 1-2 visits in the last 6 months Score: 14 Date Signed: 01/04/2018 02:12 PM Electronically Signed By:SCOOTER Lane
--- NOTE | 2018-01-04 14:13 | ASDISCHSUM ---
Discharge Information Plan Status:SNF Medically Cleared to Leave:01/04/2018 Discharge Date:01/04/2018 09:26 AM CM D/C Disposition: ADT D/C Disposition:[facility] Facility Projected Discharge Date:01/04/2018 11:00 AM Transportation at D/C: Discharge Delay Reason: Follow-Up Date:01/04/2018 11:00 AM Discharge Slot: Final Diagnosis: Placement Information Referral Type:*Chcf/SNF Referral ID:[id number] Provider Name:[facility](Former[facility]) Address 1:[address] [address] [facility] [address] Address 2: City:[place] Selection Factors: State:[place] Referral Type:Assisted Living Residence Referral ID:[id number] Provider Name: Address 1: Phone Number: Address 2: Fax Number: City: Selection Factors: State: Patient Contact Information Contact Name:FRANCIS Relationship:Son Address:[address] Work Phone: City:[place] Alternate Phone: State/Zip Code:[place] [address] Email: Financial Information Financial Class:Medicare Primary Plan Desc:MEDICARE INPATIENT Primary Plan Number:[id number] Secondary Plan Desc:[place] 3D FEDERAL PLAN Secondary Plan Number:[id number] Assessment Information [facility] CM Progress Note CM Note CM Note Notes: I spoke with patient's (who goes by "Cedric") [id number] Luciana to gather background on this difficult psychosocial case. Per Luciana, patient's son Rell (LISSETH) was taken into police custody and subsequently admitted to [facility] on 12/26. He was threatening suicide and/or homicide. Rell has also threatened Luciana with a "very messy divorce." They've been , and patient has been living with Rell. In anticipation of this messy divorce, Luciana and patient called [facility] together yesterday 12/29 for support/advice. Per Luciana, someone from [employer] came to see patient (she wasnt' there) and "took him away." This was likely when he was brought to the ED. Patient's [employer]PS die engraver is Shad Hamm [phone]. Luciana says that she has a restraining order against Rell. She was thus advised "by legal services manager" to remove herself as patient's alternate MDPOA. She called his PCP's, Dr Kevin Iglesias, office and did this. She says that she will be working with [employer] to provide additional family contact info (patient has a granddaughter named Ariana Walker) for interested parties. She told me she was advised not to give us any family members numbers yet. We have ordered an Ethics consult to help follow for this. I will contact [facility] so that we can work in tandem. PT/OT will be ordered to evaluate patient for nursing home needs. He has dementia. Case Management will follow. Date Signed: 12/30/2017 11:08 AM Electronically Signed By:Noreen Vásquez RN [facility] CM Progress Note CM Note CM Note Notes: I was not able to get in touch w [employer] die engraver Shad Hamm today. I did, however, spend a long time with patient's DIL Luciana ([phone]) and continue to gather more background. Luciana gave me the phone numbers of patient's other son Chris Walker in [place], [place] ([phone]) and his granddaughter (daughter of pt's son Rell, who is currently at [facility] In[facility]) Gagan Aaron ([phone]). I wasn't able to reach Gagan but I did speak with Chris. Apparently, Chris is the one who called the police on Rell on Wednesday. They were speaking on the phone and Rell threatened suicide. Chris also called [employer]PS to report Luciana because Rell said that Luciana was stealing money from patient. Luciana says that the money was set aside by Rell as earmarked for rent on their house. We'll let APS figure that out - the point is: APS was called on two separate occasions on this patient; one, by his son Chris in [place], [place] based on allegations that his son Rell, in [place], made against his Luciana. The other APS call was made by Luciana who was seeking resources for patient since his primary caregiver - son Rell - was hospitalized for his unstable and violent behavior. Luciana brought some things to the hospital today for patient - books, photos, clothes - and she hopes that she can help facilitate his transfer to a SNF if that becomes dispo plan. Luciana says that patient also has family in [place], [place], and a distant cousin works at a SNF there ([facility] and [facility]). Chris (the son in [place]) also mentioned that he could help if needed, perhaps facilitating patient's transfer to a SNF in [place]. We will attend behavioral health rounds tomorrow to learn more about Rell (pt's MDPOA) plan. He may not be an appropriate decision maker for his father at this point. Ethics will also weigh in. The patient is very sweet and was completely lucid and involved in our conversation today; he's not sure what he wants to do at this point, but he understands he won't be able to move back into the living situation (with Rell and Luciana) that he was in before. Date Signed: 12/30/2017 04:00 PM Electronically Signed By:oNreen Vásquez RN [facility] Progress Note CM Note CM Note Notes: Conference call with patient, his son Chris (in [place], [place]), Shad BARRAGAN, and Luciana Walker, patient's daughter in law: We discussed discharge plan for patient. Chris has agreed to be proxy (see hospitalist note). He suggested [facility] in [place] (patient has family and friends there) and/or [facility]. SNF is more appropriate at this time, and patient agreed to plan. We will proceed. During the call, patient's son Chris and CHRISTY Chowdhury began to delve into other issues (as mentioned in my note from yesterday) regarding allegations of Luciana taking money from patient, but I advised them to deal with this outside the hospital setting, with Shad from [facility]. I was able to redirect the conversation back to patient's discharge. Of note: Luciana does have full visitaiton and contact rights with patient. She is a great source of comfort to him, and she should be notified with discharge plans. Referral sent to [facility]. They will evaluate case. If he is accepted, we will need to figure out transportation. I mentioned this on the phone call with Chris and told him that I would look into cost of ground transportation. They might also choose to look into airfare. Patient's other son and LISSETH Zacarias is still hospitalized at [facility] and is not appropriate to make decisions for patient, hence the proxy appointment of patient's son Chris. Case Management will follow. Date Signed: 12/31/2017 12:08 PM Electronically Signed By:Noreen Vásquez RN [facility] CM Progress Note CM Note CM Note Notes: Spoke with Jenaro at [facility]. I gave her more background information on patient. She anticipates acceptance, but she needs her physicians to review, which will not happen until Wednesday. I explained that patient is ready for d/c now, but there seems to be no flexibility around this. I also asked her to help us with transportation ideas. Sebastian, the ED of this SNF mentioned coming down to machine operator picker patient. We need to revisit this offer on Wednesday. I called two ambulance companies, and neither will transport someone that far unless they have need for a stretcher. I called pt's son Chris and explained the above. I asked him to please assist with the transportation. He said he would "look into it." He again told me that he's not going to do anything without becoming patient's financial POA. Per our ethics dept, I told Chris that he needs to contact a software systems architect for that. Chris said that he and his have booked a non-refundable trip to [place] January 07 and he will be going. I advised him to address his father's care before he leaves for the trip. I also called patient's CHRISTY Chowdhury and shared with her that we are waiting to hear from the SNF in [place] on Wednesday and that she may visit patient over the wknd. She said that she may or may not be able to visit since she is involved in the restraining order, family issues, etc w her and his family. Date Signed: 12/31/2017 02:28 PM Electronically Signed By:Noreen Vásquez RN [facility] Progress Note CM Note CM Note Notes: CM call to son Chris in [place] [phone] to follow and see if there are updates re: transport to [place]. Chris stated he told Noreen nothing would be done until Wednesday. CM to follow. Current D/C Plan: Pending acceptance at facility in [place] and transport plan. Date Signed: 01/02/2018 12:31 PM Electronically Signed By:[facility] CM Progress Note CM Note CM Note Notes: Spoke with both patient's sons, Chris and Rell. Both of them support patient going to [facility] in [place], where patient has extended family. In fact the intramural director is the patient's in law of a cousin and she has known him her entire life. Jitendra [phone], fax # [phone]. Jitendra states they can take the patient tomorrow. An extensive search for transportation was done and [employer] has accepted the job. [facility] will bill us and the family will then need to reimburse the hospital. Patient will be transported from our door to [facility]'s door, leaving tomorrow 01-04-2018 at 9:00 AM. The transfer of Care and d/c summaries need to be done by 8:30 AM so I can fax them to the facility before the patient leaves. Nurse to nurse report call number [phone], ask for station 1 nurse. Patient is going to [facility] [place], [place]. CM will follow. Date Signed: 01/03/2018 04:55 PM Electronically Signed By:Yanci Zhao LCSW Intervention Information Intervention Type:IM-Pt. Not Available Date of Service:01/04/2018 08:42 AM Patient Type:Inpatient Staff Member:Estelle Coronel Hours: Discipline: Severity: Comment:Patient has dementia and is unable to consent to the IM form. A voicemail was left for the patients' son, Rell, who [facility].
== END 2018-01-04 09:26 | DRG 884 ==
LOC: EDUNIT# → F3E 20:10
PROVIDERS: ADMIT Student in an Organized Health Care Education/Training Program; ATTEND Student in an Organized Health Care Education/Training Program
DX: F03.90 Unspecified dementia, unspecified severity, without behavioral disturbance, psychotic disturbance, mood disturbance, and anxiety (principal); Z59.8 Other problems related to housing and economic circumstances; I25.10 Atherosclerotic heart disease of native coronary artery without angina pectoris; E11.9 Type 2 diabetes mellitus without complications; M10.9 Gout, unspecified; I10 Essential (primary) hypertension; Z95.1 Presence of aortocoronary bypass graft; Z87.891 Personal history of nicotine dependence
CPT/HCPCS: 92507-GN; 92523-GN; 97116-GP; 97161-GP; 97166-GO; 97530-GO; 97530-GP; 97535-GO; G8978-GP-CK; G8979-GP-CJ; G8987-GO-CM; G8988-GO-CL; G9168-GN-CL; G9169-GN-CL